=== PATIENT | male | born 1950 | race Caucasian/White ===

== ENCOUNTER 2018-10-29 10:30 | Day surgery (SDC) | payer OTHER ==
[~2018-10-29] VITALS: Ht 190.5 cm; Wt 81.0 kg
[~2018-10-29 10:30] MED LIST: AMIO200T44 PO; AMLO-512 PO; BICT1TAB PO; CYAN250014 PO; DULO30CA2 PO; HYDR25TA PO; MULT1CAP32 PO; PANT40TA25 PO; PRAV10TA39 PO; PRED20 PO; PYRI50TA9 PO; RIVA20TA PO; TEST5GEL TD
[2018-10-29] MEDS ORDERED: SODIUM CHLORIDE 0.9% 1,000 ML IV ONE ×2 (11:00→11:26)
[2018-10-29] MEDS ORDERED: LIDOCAINE/PF 2% 5 ML VIAL INJ ONE (12:00)
[2018-10-29] MEDS ORDERED: PROPOFOL 1% 20 ML VIAL IVP ONE (12:00)
== END 2018-10-29 12:15 | disposition home or self-care (01) ==
LOC: SURGERY 10:30
PROVIDERS: ATTEND Internal Medicine Gastroenterology
DX: K29.50 Unspecified chronic gastritis without bleeding (principal); K22.8 Other specified diseases of esophagus; I10 Essential (primary) hypertension; F32.9 Major depressive disorder, single episode, unspecified; G51.0 Bell's palsy; E78.00 Pure hypercholesterolemia, unspecified; G62.9 Polyneuropathy, unspecified; Z79.01 Long term (current) use of anticoagulants; Z85.828 Personal history of other malignant neoplasm of skin; Z88.8 Allergy status to other drugs, medicaments and biological substances; Z79.899 Other long term (current) drug therapy; Z98.890 Other specified postprocedural states
CPT/HCPCS: 43239; 88305; 88312; C1769; J2704; J3490; J7030

== ENCOUNTER 2019-09-30 10:29 | Day surgery (SDC) | payer OTHER ==
[~2019-09-30] VITALS: Ht 190.5 cm; Wt 79.5 kg
[~2019-09-30 10:29] MED LIST changes: -AMLO-512 PO; +AMLO10TA7 PO; +PYRI50TA13 PO; -PYRI50TA9 PO; +SODIUM CHLORIDE 0.9% 1,000 ML IV ONE
[2019-09-30] MEDS ORDERED: LIDOCAINE/PF 2% 5 ML SYRINGE IVP ONE (10:30)
[2019-09-30] MEDS ORDERED: SODIUM CHLORIDE 0.9% 1,000 ML IV ONE (10:30)
[2019-09-30] MEDS ORDERED: PROPOFOL 1% 20 ML VIAL IVP ONE (10:30)
== END 2019-09-30 14:10 | disposition home or self-care (01) ==
LOC: SURGERY 10:29
PROVIDERS: ATTEND Student in an Organized Health Care Education/Training Program
DX: R13.10 Dysphagia, unspecified (principal); K20.8 Other esophagitis; K44.9 Diaphragmatic hernia without obstruction or gangrene; K31.89 Other diseases of stomach and duodenum; K29.50 Unspecified chronic gastritis without bleeding; I10 Essential (primary) hypertension; F32.9 Major depressive disorder, single episode, unspecified; Z85.828 Personal history of other malignant neoplasm of skin; E61.1 Iron deficiency; G62.9 Polyneuropathy, unspecified; I48.91 Unspecified atrial fibrillation; Z79.899 Other long term (current) drug therapy; Z79.01 Long term (current) use of anticoagulants; Z88.8 Allergy status to other drugs, medicaments and biological substances; Z80.0 Family history of malignant neoplasm of digestive organs; Z98.890 Other specified postprocedural states
CPT/HCPCS: 43239; 88305; 88312; 88313; 93005; C1769; J2704; J3490; J7030